=== PATIENT | female | born 1965 | race American Indian/Alaskan Native ===

== ENCOUNTER 2017-09-14 10:17 | Emergency (ER) | payer OTHER ==
[2017-09-14] MEDS ORDERED: MOTRIN PO ONE (11:25)
--- NOTE | 2017-09-14 12:06 | Emergency Department Report ---
Minor Respiratory - HPI Chief Complaint: Upper Respiratory Infection Stated Complaint: COUGH/RUNNY NOSE/BODY ACHE Time Seen by Provider: 09/14/17 11:02 Duration: 2 Days Pain Location: Facial, Throat Severity: moderate Minor Respiratory: Yes Able to Tolerate Fluids, Yes Cough, Yes Sick Contacts, No Rhinorrhea, No Sore Throat, No Ear Pain, No Hemoptysis, No Chest Pain, No Shortness of Breath, No Fever ED Review of Systems ROS: Stated complaint: COUGH/RUNNY NOSE/BODY ACHE Other details as noted in HPI Comment: All other systems reviewed and negative ED Past Medical Hx - Past Medical History Previous Medical History?: No - Surgical History Past Surgical History?: Yes Additional Surgical History: Dislocated pelvis, right thumb surgery - Social History Smoking Status: Never Smoker Substance Use Type: Alcohol, Non Opiate Pain, Other - Medications Home Medications: Home Medications Medication Instructions Recorded Confirmed Last Taken Type Amoxicillin 500 mg PO BID #20 capsule 09/14/17 Unknown Rx Fluticasone [Flonase] 1 spray NS QDAY #1 bottle 09/14/17 Unknown Rx methylPREDNISolone [Medrol] 4 mg PO DAILY #1 tab.ds.pk 09/14/17 Unknown Rx Minor Respiratory Exam - Exam General: Vital signs noted. No distress. Alert and acting appropriately. Neurologic: Alert and oriented, no deficits. Musculoskeletal: Unremarkable. ED Course Vital Signs 09/14/17 10:29 Temperature 98 F Pulse Rate 88 Respiratory 20 Rate Blood Pressure 131/83 O2 Sat by Pulse 98 Oximetry - Reevaluation(s) Reevaluation #2: 09/15/17 09:59 PT CALLED THIS AM DID NOT GET MEDS WANTS WORK NOTE EXTENDED Critical care attestation.: If time is entered above; I have spent that time in minutes in the direct care of this critically ill patient, excluding procedure time. ED Disposition Clinical Impression: Upper respiratory infection, Sinusitis Disposition: [id number] TO HOME OR SELFCARE Is pt being admited?: No Does the pt Need Aspirin: No Condition: Stable Instructions: Sinusitis (ED), Upper Respiratory Infection (ED) Additional Instructions: rest hydrate well meds as ordered today follow up with your primary doctor within 3 days for recheck motrin or tylenol for pain or fever delsym over the counter for cough if needed return to ER if high fever that will not come down with motrin and /or tylenol Prescriptions: Amoxicillin 500 mg PO BID #20 capsule Fluticasone [Flonase] 1 spray NS QDAY #1 bottle methylPREDNISolone [Medrol] 4 mg PO DAILY #1 tab.ds.pk Referrals: PRIMARY CARE, [Primary Care Provider] - 3-5 Days Forms: Work/School Release Form(ED) Time of Disposition: 14:41
--- NOTE | 2017-09-14 12:45 | XRay Report ---
Chest 2 views: History: Cold cough and congestion. Findings: Normal cardiomediastinal silhouette. Trachea is midline. No consolidation, pneumothorax or pleural effusion. Impression: No acute cardiopulmonary findings.
[2017-09-14 15:02] VITALS: BP 108/87
== END 2017-09-14 15:02 | disposition home or self-care (01) ==
LOC: ED 10:17
DX: J32.9 Chronic sinusitis, unspecified (principal); J06.9 Acute upper respiratory infection, unspecified
CPT/HCPCS: 71020; 87116; 87400; 87430

== ENCOUNTER 2017-12-26 02:41 | Emergency (ER) | payer OTHER ==
[2017-12-26] MEDS ORDERED: TYLENOL ONE (05:25)
--- NOTE | 2017-12-26 08:08 | Emergency Department Report ---
- General Chief Complaint: Upper Respiratory Infection Stated Complaint: COUGH/BODY ACHES Time Seen by Provider: 12/26/17 07:19 Source: patient Mode of arrival: Ambulatory Limitations: No Limitations - History of Present Illness Initial Comments: 52-year-old after an [place] female comes to the emergency room for complaint of cough runny nose body aches that started yesterday. Patient denies any chest pain no shortness of region of fever no chills no nausea. She does admit that she had vomiting 2 yesterday none today. Patient reports she is on a taken TheraFlu 2 packages. Still working around sick people. Patient requesting a work excuse to return back on Friday. Patient is no past medical history currently takes no medications on a daily basis and has no known drug allergies. MD Complaint: cough, rhinorrhea, nasal congestion, other (wheezing) -: days(s) (1) Severity scale (0 -10): 10 Consistency: intermittent Improves With: nothing Worsens With: nothing Context: sick contacts Treatments Prior to Arrival: none - Related Data Previous Rx's Medication Instructions Recorded Last Taken Type Amoxicillin 500 mg PO BID #20 capsule 09/14/17 Unknown Rx methylPREDNISolone [Medrol] 4 mg PO DAILY #1 tab.ds.pk 09/14/17 Unknown Rx Fluticasone [Flonase] 1 spray NS QDAY #1 bottle 12/26/17 Unknown Rx Ibuprofen [Motrin 800 MG tab] 800 mg PO Q8H PRN #30 tablet 12/26/17 Unknown Rx Loratadine [Claritin] 10 mg PO DAILY #30 tablet 12/26/17 Unknown Rx Allergies Allergy/AdvReac Type Severity Reaction Status Date / Time No Known Allergies Allergy Verified 02/01/15 10:21 ED Review of Systems ROS: Stated complaint: COUGH/BODY ACHES Other details as noted in HPI Constitutional: denies: chills, fever Eyes: denies: eye pain, eye discharge, vision change ENT: congestion, other (rhinorrhea, sneezing) Respiratory: cough. denies: orthopnea, shortness of breath, SOB with exertion, SOB at rest Cardiovascular: denies: chest pain, palpitations Endocrine: no symptoms reported Gastrointestinal: denies: abdominal pain, nausea, diarrhea Genitourinary: denies: urgency, dysuria, discharge Musculoskeletal: myalgia Skin: denies: rash, lesions Neurological: headache (frontal). denies: weakness, paresthesias Psychiatric: denies: anxiety, depression Hematological/Lymphatic: denies: easy bleeding, easy bruising ED Past Medical Hx - Past Medical History Previous Medical History?: No - Surgical History Past Surgical History?: Yes Additional Surgical History: Dislocated pelvis, right thumb surgery - Social History Smoking Status: Never Smoker Substance Use Type: None - Medications Home Medications: Home Medications Medication Instructions Recorded Confirmed Last Taken Type Amoxicillin 500 mg PO BID #20 capsule 09/14/17 Unknown Rx methylPREDNISolone [Medrol] 4 mg PO DAILY #1 tab.ds.pk 09/14/17 Unknown Rx Fluticasone [Flonase] 1 spray NS QDAY #1 bottle 12/26/17 Unknown Rx Ibuprofen [Motrin 800 MG tab] 800 mg PO Q8H PRN #30 tablet 12/26/17 Unknown Rx Loratadine [Claritin] 10 mg PO DAILY #30 tablet 12/26/17 Unknown Rx ED Physical Exam - General Limitations: No Limitations General appearance: alert, in no apparent distress - Head Head exam: Present: atraumatic, normocephalic - Eye Eye exam: Present: normal appearance - ENT ENT exam: Present: mucous membranes moist, TM's normal bilaterally, normal external ear exam, other (nasal discharge) - Neck Neck exam: Present: normal inspection, full ROM. Absent: lymphadenopathy - Respiratory Respiratory exam: Present: normal lung sounds bilaterally. Absent: respiratory distress, wheezes, rales - Cardiovascular Cardiovascular Exam: Present: regular rate, normal rhythm. Absent: systolic murmur, diastolic murmur, rubs, gallop - GI/Abdominal GI/Abdominal exam: Present: soft, normal bowel sounds - Extremities Exam Extremities exam: Present: normal inspection - Back Exam Back exam: Present: normal inspection - Neurological Exam Neurological exam: Present: alert, oriented X3 - Psychiatric Psychiatric exam: Present: normal affect, normal mood - Skin Skin exam: Present: warm, dry, intact, normal color. Absent: rash ED Course Vital Signs 12/26/17 04:18 Temperature 98.5 F Pulse Rate 85 Respiratory 16 Rate Blood Pressure 133/77 O2 Sat by Pulse 99 Oximetry ED Medical Decision Making - Medical Decision Making 52-year-old female presents with viral syndrome. No fever during the ED stay. Did not perform rapid flu test a ED due to patient haveing no fever . Discussed with Pt symptomatic relief with [id number] medications. Such as Claritin or Zyrtec Discussed continue Motrin as needed for fever and pain. Discussed increase fluids and diet intake. Discussed rest much needed. Discussed daily vitamin C for immune booster. Discussed follow-up with PCP in 3-5 days. Patient verbally states she understands and will comply the following instructions and follow-up Vital signs stable. Patient is in no acute distress Critical care attestation.: If time is entered above; I have spent that time in minutes in the direct care of this critically ill patient, excluding procedure time. ED Disposition Clinical Impression: Viral syndrome Allergic rhinitis Qualifiers: Allergic rhinitis trigger: unspecified Allergic rhinitis seasonality: unspecified seasonality Qualified Code(s): J30.9 - Allergic rhinitis, unspecified Disposition: - TO HOME OR SELFCARE Is pt being admited?: No Does the pt Need Aspirin: No Condition: Stable Instructions: Viral Syndrome (ED), Allergic Rhinitis (ED) Additional Instructions: Please take medication as prescribed. If symptoms persist or gets worse please follow up with her primary care doctor. Prescriptions: Fluticasone [Flonase] 1 spray NS QDAY #1 bottle Ibuprofen [Motrin 800 MG tab] 800 mg PO Q8H PRN #30 tablet PRN Reason: Pain Loratadine [Claritin] 10 mg PO DAILY #30 tablet Referrals: PARTH BRADFORD MD [Primary Care Provider] - 3-5 Days Forms: Work/School Release Form(ED), Accompanied Note
[2017-12-26] MEDS ORDERED: MOTRIN PO ONE (08:09)
[2017-12-26 08:37] VITALS: BP 138/82
== END 2017-12-26 08:36 | disposition home or self-care (01) ==
LOC: ED 02:41
DX: J30.9 Allergic rhinitis, unspecified (principal); B34.9 Viral infection, unspecified
CPT/HCPCS: 99282